=== PATIENT | female | born 1965 | race African-American/Black ===

== ENCOUNTER 2016-05-10 17:27 | Emergency (ER) | payer SELFPAY ==
[2016-05-10] MEDS ORDERED: ACETAMINOPHEN 325 MG TABLET PO ONE (17:49)
--- NOTE | 2016-05-10 17:50 | ER Document Report ---
ED Medical Screen (RME) - General Stated Complaint: DIZZY, HEADACHE,FAST HEART BEAT Mode of Arrival: Ambulatory Information source: Patient Notes: Patient complains of headache and dizziness for the past 3 days. Patient states her blood pressure has been running slightly elevated. Patient complains of generalized body aches. Patient additionally complains of blood in her stool for the past week. hx: Hypertension in the past, no on any Medications I have greeted and performed a rapid initial assessment of this patient. A comprehensive ED assessment and evaluation of the patient, analysis of test results and completion of the medical decision making process will be conducted by additional ED providers. TRAVEL OUTSIDE OF THE [place] IN LAST 30 DAYS: No - Related Data Allergies/Adverse Reactions: No Known Allergies Allergy (Verified 04/20/15 17:43) Past Medical History - Past Medical History Cardiac Medical History: Denies: Hx Atrial Fibrillation, Hx Congestive Heart Failure, Hx Coronary Artery Disease, Hx Heart Attack, Hx Hypercholesterolemia, Hx Peripheral Vascular Disease, Hx Pulmonary Embolism, Hx Heart Murmur Pulmonary Medical History: Denies: Hx Asthma, Hx Bronchitis, Hx COPD, Hx Pneumonia, Hx Respiratory Failure, Hx Sleep Apnea, Hx Tuberculosis Neurological Medical History: Denies: Hx Cerebrovascular Accident, Hx Seizures Endocrine Medical History: Denies: Hx Graves' Disease, Hx Hyperthyroidism, Hx Hypothyroidism Renal/ Medical History: Denies: Hx End Stage Renal Disease, Hx Kidney Stones, Hx Ovarian Cysts, Hx Peritoneal Dialysis, Hx Pelvic Inflammatory Disease Malignancy Medical History: Denies: Hx Breast Cancer, Hx Cervical Cancer, Hx Leukemia, Hx Lung Cancer, Hx Ovarian Cancer GI Medical History: Denies: Hx Crohn's Disease, Hx Gastroesophageal Reflux Disease, Hx Hiatal Hernia, Hx Irritable Bowel, Hx Liver Failure, Hx Ulcer Musculoskeltal Medical History: Reports Hx Arthritis, Denies Hx Fibromyalgia, Denies Hx Multiple Sclerosis, Denies Hx Muscular Dystrophy Psychiatric Medical History: Denies: Hx Bipolar Disorder, Hx Dementia, Hx Depression, Hx Post Traumatic Stress Disorder, Hx Schizophrenia Traumatic Medical History: Denies: Hx Fractures Infectious Medical History: Denies: Hx HIV Past Surgical History: Reports: Hx Hysterectomy, Hx Tonsillectomy, Hx Tubal Ligation. Denies: Hx Mastectomy, Hx Pacemaker - Immunizations Immunizations up to date: Yes Hx Diphtheria, Pertussis, Tetanus Vaccination: Yes Physical Exam - Vital signs Vitals: Temp Pulse Resp BP Pulse Ox 98.7 F 71 18 165/105 H 100 05/10/16 17:35 05/10/16 17:35 05/10/16 17:35 05/10/16 17:35 05/10/16 17:35 - Neurological Neuro grossly intact: Yes Cognition: Normal [place] Coma Scale Eye Opening: Spontaneous [place] Coma Scale Verbal: Oriented [place] Coma Scale Motor: Obeys Commands [place] Coma Scale Total: 15 Course - Vital Signs Vital signs: Temp Pulse Resp BP Pulse Ox 98.7 F 71 18 165/105 H 100 05/10/16 17:35 05/10/16 17:35 05/10/16 17:35 05/10/16 17:35 05/10/16 17:35
[2016-05-10 18:44] LABS: ABSOLUTE EOSINOPHILS # (AUTO) 0.1 10^3/uL (0.0-0.6); ABSOLUTE LYMPHOCYTES (AUTO) 2.6 10^3/uL (0.5-4.7); ABSOLUTE MONOCYTES (AUTO) 0.4 10^3/uL (0.1-1.4); ABSOLUTE NEUT (AUTO) 2.6 10^3/uL (1.7-8.2); BASOPHILS % (AUTO) 0.8 % (0-2); EOSINOPHILS % (AUTO) 1.2 % (0-6); HEMATOCRIT 41.4 % (36.0-47.0); HEMOGLOBIN 14.2 g/dL (12.0-15.5); HGB HCT DIFFERENCE 1.2; LYMPHOCYTES % (AUTO) 45.1 % (13-45); MEAN CORPUSCULAR HEMOGLOBIN 29.4 pg (27.0-33.4); MEAN CORPUSCULAR HGB CONC 34.4 g/dL (32.0-36.0); MEAN CORPUSCULAR VOLUME 86 fl (80-97); MONOCYTES % (AUTO) 6.7 % (3-13); RED BLOOD COUNT 4.84 10^6/uL (3.72-5.28); RED CELL DISTRIBUTION WIDTH 13.5 % (11.5-14.0); SEGMENTED NEUTROPHILS % (AUTO) 46.2 % (42-78); WHITE BLOOD COUNT 5.7 10^3/uL (4.0-10.5)
--- NOTE | 2016-05-10 18:56 | EKG REPORT ---
SEVERITY:- OTHERWISE NORMAL ECG - SINUS RHYTHM BORDERLINE LEFT AXIS DEVIATION : Confirmed by: Rashad Villavicencio MD 10-May-2016 18:55:24
[2016-05-10 19:07] LABS: ALANINE AMINOTRANSFERASE 26 U/L (9-52); ALBUMIN 4.4 g/dL (3.5-5.0); ALKALINE PHOSPHATASE 129 U/L (38-126); ANION GAP 12 (5-19); ASPARTATE AMINO TRANSFERASE 32 U/L (14-36); BILIRUBIN,TOTAL 0.5 mg/dL (0.2-1.3); BLOOD UREA NITROGEN 15 mg/dL (7-20); CARBON DIOXIDE 32 mmol/L (22-30); CHLORIDE 99 mmol/L (98-107); GLUCOSE 83 mg/dL (75-110); POTASSIUM 3.8 mmol/L (3.6-5.0); SODIUM 142.8 mmol/L (137-145); TOTAL PROTEIN 8.4 g/dL (6.3-8.2)
[2016-05-10 19:45] LABS: APPEARANCE,URINE CLEAR; BILIRUBIN,URINE NEGATIVE (NEGATIVE); GLUCOSE, URINE NEGATIVE (NEGATIVE); KETONES,URINE NEGATIVE (NEGATIVE); LEUKOCYTE ESTERASE,URINE NEGATIVE (NEGATIVE); NITRITE,URINE NEGATIVE (NEGATIVE); PROTEIN,URINE NEGATIVE (NEGATIVE); URINE SPECIFIC GRAVITY 1.008; UROBILINOGEN,URINE NEGATIVE mg/dL (<2.0)
[2016-05-10] MEDS ORDERED: HYDROCHLOROTHIAZIDE 12.5 MG CAPSULE PO ONE (22:57)
--- NOTE | 2016-05-10 22:58 | ER Document Report ---
ED General - General Chief Complaint: Headache Stated Complaint: DIZZY, HEADACHE,FAST HEART BEAT Mode of Arrival: Ambulatory Notes: Patient is a 50-year-old female with past medical history of hypertension who presents with concerns about her blood pressure. States that she's noted elevated blood pressure repeated at home on a home blood pressure monitor and became concerned about this and wanted to be evaluated tonight. In triage she did complain of some associated "dizziness" but denies this complaint to me and states her only real concern is regarding her blood pressure. She has not had any nausea, vomiting, chest pain, shortness of breath or syncope. She has not seen a primary care physician regarding today's concerns. States she used to be on antihypertensive medications but is not taking these any longer. Nothing improves or worsens her symptoms. TRAVEL OUTSIDE OF THE [place] IN LAST 30 DAYS: No - Related Data Allergies/Adverse Reactions: No Known Allergies Allergy (Verified 04/20/15 17:43) Past Medical History - General Information source: Patient - Social History Smoking Status: Never Smoker Frequency of alcohol use: None Drug Abuse: None Lives with: Spouse/Significant other Family History: Reviewed & Not Pertinent Patient has suicidal ideation: No Patient has homicidal ideation: No - Past Medical History Cardiac Medical History: Denies: Hx Atrial Fibrillation, Hx Congestive Heart Failure, Hx Coronary Artery Disease, Hx Heart Attack, Hx Hypercholesterolemia, Hx Peripheral Vascular Disease, Hx Pulmonary Embolism, Hx Heart Murmur Pulmonary Medical History: Denies: Hx Asthma, Hx Bronchitis, Hx COPD, Hx Pneumonia, Hx Respiratory Failure, Hx Sleep Apnea, Hx Tuberculosis Neurological Medical History: Denies: Hx Cerebrovascular Accident, Hx Seizures Endocrine Medical History: Denies: Hx Graves' Disease, Hx Hyperthyroidism, Hx Hypothyroidism Renal/ Medical History: Denies: Hx End Stage Renal Disease, Hx Kidney Stones, Hx Ovarian Cysts, Hx Peritoneal Dialysis, Hx Pelvic Inflammatory Disease Malignancy Medical History: Denies: Hx Breast Cancer, Hx Cervical Cancer, Hx Leukemia, Hx Lung Cancer, Hx Ovarian Cancer GI Medical History: Denies: Hx Crohn's Disease, Hx Gastroesophageal Reflux Disease, Hx Hiatal Hernia, Hx Irritable Bowel, Hx Liver Failure, Hx Ulcer Musculoskeltal Medical History: Reports Hx Arthritis, Denies Hx Fibromyalgia, Denies Hx Multiple Sclerosis, Denies Hx Muscular Dystrophy Psychiatric Medical History: Denies: Hx Bipolar Disorder, Hx Dementia, Hx Depression, Hx Post Traumatic Stress Disorder, Hx Schizophrenia Traumatic Medical History: Denies: Hx Fractures Infectious Medical History: Denies: Hx HIV Past Surgical History: Reports: Hx Hysterectomy, Hx Tonsillectomy, Hx Tubal Ligation. Denies: Hx Mastectomy, Hx Pacemaker - Immunizations Immunizations up to date: Yes Hx Diphtheria, Pertussis, Tetanus Vaccination: Yes Review of Systems - Review of Systems Notes: Constitutional: Negative for fever. HENT: Negative for sore throat. Eyes: Negative for visual changes. Cardiovascular: Negative for chest pain. Respiratory: Negative for shortness of breath. Gastrointestinal: Negative for abdominal pain, vomiting or diarrhea. Genitourinary: Negative for dysuria. Musculoskeletal: Negative for back pain. Skin: Negative for rash. Neurological: Negative for headaches, weakness or numbness. 10 point ROS negative except as marked above and in HPI. Physical Exam - Vital signs Vitals: Temp Pulse Resp BP Pulse Ox 98.7 F 71 18 165/105 H 100 05/10/16 17:35 05/10/16 17:35 05/10/16 17:35 05/10/16 17:35 05/10/16 17:35 Interpretation: Hypertensive Notes: PHYSICAL EXAMINATION: GENERAL: Well-appearing, well-nourished and in no acute distress. HEAD: Atraumatic, normocephalic. EYES: Pupils equal round and reactive to light, extraocular movements intact, sclera anicteric, conjunctiva are normal. ENT: nares patent, oropharynx clear without exudates. Moist mucous membranes. NECK: Normal range of motion, supple without lymphadenopathy LUNGS: Breath sounds clear to auscultation bilaterally and equal. No wheezes rales or rhonchi. HEART: Regular rate and rhythm without murmurs ABDOMEN: Soft, nontender, normoactive bowel sounds. No guarding, no rebound. No masses appreciated. EXTREMITIES: Normal range of motion, no pitting or edema. No cyanosis. NEUROLOGICAL: No focal neurological deficits. Moves all extremities spontaneously and on command. PSYCH: Normal mood, normal affect. SKIN: Warm, Dry, normal turgor, no rashes or lesions noted. Course - Re-evaluation Re-evalutation: 05/10/16 22:55 Presentation of asymptomatic hypertension. Patient denies any symptoms concerning for SAH, dissection, PR, or encephalopaty. Alert, oriented, and denies any symptoms at time of assessment. Patient states her main concern was her blood pressure. Contrary to triage note, patient denies any rectal bleeding or headache to me. States that she has had blood pressure that has been uncontrolled for years and is not currently on any medications Normal neuro exam. I have discussed critical importance of follow up with PCP within 1 week and increased risk of devastating stroke, heart attack, respiratory distress, and other life threatening complications if blood pressure is not reduced appropriately. Diet and exercise habits also discussed.a broad range of laboratory was ordered in triage as well as an EKG likewise are unremarkable. At this time will discharge with return precautions and follow-up recommendations. Verbal discharge instructions given a the bedside and opportunity for questions given. Medication warnings reviewed. Patient is in agreement with this plan and has verbalized understanding of return precautions and the need for primary care follow-up in the next 24-72 hours. - Vital Signs Vital signs: Temp Pulse Resp BP Pulse Ox 97.9 F 66 16 146/99 H 99 05/10/16 23:42 05/10/16 23:42 05/10/16 23:42 05/10/16 23:42 05/10/16 23:42 - Laboratory Result Diagrams: 05/10/16 18:25 05/10/16 18:25 Laboratory results interpreted by me: 05/10/16 05/10/16 18:25 18:25 Lymphocytes % 45.1 H Carbon Dioxide 32 H Alkaline Phosphatase 129 H Total Protein 8.4 H - EKG Interpretation by Me Additional EKG results interpreted by me: 05/10/16 22:56 Normal sinus rhythm. Rate 67. No ST elevations or depressions. QTC is 444. Discharge - Discharge Clinical Impression: Essential hypertension Condition: Good Disposition: HOME, SELF-CARE Additional Instructions: You were seen today for blood pressure that was high. This is a long-term risk factor for multiple medical problems including heart attack and stroke. However, the blood pressure in of itself will not cause you to have an acute stroke or heart attack over the course of just several days or weeks. You need to have a gradual reduction of your blood pressure back to normal levels over the next several months in conjunction with your primary care physician. Return if you develop headache, weakness, numbness, chest pain, pass out, or have any other symptoms that are concerning to you. Prescriptions: Hydrochlorothiazide 12.5 mg PO DAILY #30 tablet
[2016-05-10 23:50] VITALS: BP 146/99
== END 2016-05-10 23:45 | disposition home or self-care (01) ==
LOC: ER 17:27
DX: I10 Essential (primary) hypertension (principal); R51 Headache; R42 Dizziness and giddiness; Z90.710 Acquired absence of both cervix and uterus
CPT/HCPCS: 36415; 80053; 81001; 85025; 93005; 93010; 99284

== ENCOUNTER 2017-11-06 23:05 | Emergency (ER) | payer OTHER ==
[2017-11-07] MEDS ORDERED: KETOROLAC TROMETHAMINE 60 MG/2 ML SDV IM ONE (02:49)
[2017-11-07] MEDS ORDERED: METHOCARBAMOL 750 MG TABLET PO ONE (02:49)
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
[2017-11-07 04:45] VITALS: BP 152/94
== END 2017-11-07 04:46 | disposition home or self-care (01) ==
LOC: ER 23:05
DX: S16.1XXA Strain of muscle, fascia and tendon at neck level, initial encounter (principal); M54.6 Pain in thoracic spine; V89.2XXA Person injured in unspecified motor-vehicle accident, traffic, initial encounter; Z90.710 Acquired absence of both cervix and uterus; Z98.51 Tubal ligation status
CPT/HCPCS: 99284; 96372; 72040; 72070; J1885; J3490

== ENCOUNTER 2018-02-10 08:33 | Emergency (ER) | payer OTHER ==
[2018-02-10] MEDS ORDERED: KETOROLAC TROMETHAMINE INJ/PF 30 MG/1 ML SDV IV ONE (09:09)
[2018-02-10 09:43] LABS: ABSOLUTE LYMPHOCYTES (AUTO) 1.2 10^3/uL (0.5-4.7); ABSOLUTE MONOCYTES (AUTO) 0.2 10^3/uL (0.1-1.4); ABSOLUTE NEUT (AUTO) 2.4 10^3/uL (1.7-8.2); EOSINOPHILS % (AUTO) 0.6 % (0-6); HEMATOCRIT 40.4 % (36.0-47.0); HEMOGLOBIN 13.8 g/dL (12.0-15.5); LYMPHOCYTES % (AUTO) 31.7 % (13-45); MEAN CORPUSCULAR HEMOGLOBIN 29.2 pg (27.0-33.4); MEAN CORPUSCULAR HGB CONC 34.2 g/dL (32.0-36.0); MEAN CORPUSCULAR VOLUME 85 fl (80-97); MONOCYTES % (AUTO) 4.7 % (3-13); PLATELET COUNT 270 10^3/uL (150-450); RED BLOOD COUNT 4.74 10^6/uL (3.72-5.28); RED CELL DISTRIBUTION WIDTH 13.3 % (11.5-14.0); TOTAL CELLS COUNTED % (AUTO) 100 %; WHITE BLOOD COUNT 3.9 10^3/uL (4.0-10.5)
[2018-02-10 10:05] LABS: ALANINE AMINOTRANSFERASE 17 U/L (9-52); ALBUMIN 4.5 g/dL (3.5-5.0); ALKALINE PHOSPHATASE 95 U/L (38-126); ANION GAP 8 (5-19); ASPARTATE AMINO TRANSFERASE 25 U/L (14-36); BILIRUBIN,DIRECT 0.3 mg/dL (0.0-0.4); BILIRUBIN,TOTAL 0.6 mg/dL (0.2-1.3); BLOOD UREA NITROGEN 16 mg/dL (7-20); CALCIUM 9.9 mg/dL (8.4-10.2); CARBON DIOXIDE 32 mmol/L (22-30); CHLORIDE 102 mmol/L (98-107); GLUCOSE 93 mg/dL (75-110); POTASSIUM 4.5 mmol/L (3.6-5.0); SODIUM 142.2 mmol/L (137-145); TOTAL PROTEIN 7.7 g/dL (6.3-8.2)
[2018-02-10 10:19] LABS: APPEARANCE,URINE CLEAR; BILIRUBIN,URINE NEGATIVE (NEGATIVE); COLOR,URINE STRAW; GLUCOSE, URINE NEGATIVE (NEGATIVE); KETONES,URINE NEGATIVE (NEGATIVE); LEUKOCYTE ESTERASE,URINE NEGATIVE (NEGATIVE); NITRITE,URINE NEGATIVE (NEGATIVE); PROTEIN,URINE NEGATIVE (NEGATIVE); URINE SPECIFIC GRAVITY 1.009; UROBILINOGEN,URINE NEGATIVE mg/dL (<2.0)
[2018-02-10 10:42] LABS: URINE AMPHETAMINES SCREEN NEGATIVE; URINE BENZODIAZEPINES SCREEN NEGATIVE; URINE COCAINE SCREEN NEGATIVE; URINE MARIJUANA (THC) SCREEN UNCONFIRMED POSITIVE; URINE PHENCYCLIDINE SCREEN NEGATIVE
[2018-02-10 10:43] LABS: URINE BARBITURATES SCREEN NEGATIVE; URINE METHADONE SCREEN NEGATIVE
--- NOTE | 2018-02-10 12:17 | RADIOLOGY REPORT (SQ) ---
EXAM DESCRIPTION: U/S NON OB PEL TV W/DOPPLER COMPLETED DATE/TIME: 02/10/2018 12:03 pm REASON FOR STUDY: rught adenexal pain COMPARISON: None. TECHNIQUE: Dynamic and static grayscale images acquired of the pelvis via transvaginal approach and recorded on PACS. Additional selected color Doppler and spectral images recorded. LIMITATIONS: None. FINDINGS: There is scratch the limiting overlying bowel gas. Patient reportedly status post partial hysterectomy. No mass identified. Ovaries not seen. IMPRESSION: No gross mass. Ovaries and uterus not seen. TECHNICAL DOCUMENTATION: JOB ID: [id number] [employer]- All Rights Reserved Rev-08/18 Reading location - IP/workstation name: [email or web address]
[2018-02-10 12:58] VITALS: BP 163/95
--- NOTE | 2018-02-10 14:46 | ER Document Report ---
ED General - General Chief Complaint: Flank Pain Stated Complaint: BACK AND SIDE PAIN Time Seen by Provider: 02/10/18 08:54 Mode of Arrival: Ambulatory Notes: Patient is a 52-year-old female comes emergency room complaining of right-sided back pain that comes around to the side and into the right lower quadrant area. Patient calls it a sharp pain a constant pain there is been getting worse over the past 3 days. Patient denies any discharge vaginally she denies any urinary symptoms. She has a history of a partial hysterectomy in 2011. No fever she does have some increased pain with any type of movement to the right leg and groin area. She does not smoke and she works in a [employer] center. TRAVEL OUTSIDE OF THE [place] IN LAST 30 DAYS: No - HPI Onset: Other - 2 weeks but worse in the past 3 days and has become constant. Onset/Duration: Constant, Persistent, Worse Quality of pain: Achy, Cramping, Sharp Severity: Moderate Pain Level: 3 Associated symptoms: denies: Diarrhea, Leg swelling, Nausea, Vomiting Exacerbated by: Movement, Walking Relieved by: Remaining still Similar symptoms previously: Yes Recently seen / treated by doctor: No - Related Data Allergies/Adverse Reactions: No Known Allergies Allergy (Verified 02/10/18 08:34) Past Medical History - General Information source: Patient - Social History Smoking Status: Never Smoker Cigarette use (# per day): No Chew tobacco use (# tins/day): No Smoking Education Provided: No Frequency of alcohol use: Occasional Drug Abuse: None Family History: Reviewed & Not Pertinent Patient has suicidal ideation: No Patient has homicidal ideation: No - Past Medical History Cardiac Medical History: Reports: Hx Hypertension - no meds Denies: Hx Atrial Fibrillation, Hx Congestive Heart Failure, Hx Coronary Artery Disease, Hx Heart Attack, Hx Hypercholesterolemia, Hx Peripheral Vascular Disease, Hx Pulmonary Embolism, Hx Heart Murmur Pulmonary Medical History: Denies: Hx Asthma, Hx Bronchitis, Hx COPD, Hx Pneumonia, Hx Respiratory Failure, Hx Sleep Apnea, Hx Tuberculosis Neurological Medical History: Denies: Hx Cerebrovascular Accident, Hx Seizures Endocrine Medical History: Denies: Hx Graves' Disease, Hx Hyperthyroidism, Hx Hypothyroidism Renal/ Medical History: Denies: Hx End Stage Renal Disease, Hx Kidney Stones, Hx Ovarian Cysts, Hx Peritoneal Dialysis, Hx Pelvic Inflammatory Disease Malignancy Medical History: Denies: Hx Breast Cancer, Hx Cervical Cancer, Hx Leukemia, Hx Lung Cancer, Hx Ovarian Cancer GI Medical History: Denies: Hx Crohn's Disease, Hx Gastroesophageal Reflux Disease, Hx Hiatal Hernia, Hx Irritable Bowel, Hx Liver Failure, Hx Pancreatitis , Hx Ulcer Musculoskeletal Medical History: Reports Hx Arthritis, Denies Hx Fibromyalgia, Denies Hx Multiple Sclerosis, Denies Hx Muscular Dystrophy Psychiatric Medical History: Denies: Hx Bipolar Disorder, Hx Dementia, Hx Depression, Hx Post Traumatic Stress Disorder, Hx Schizophrenia Traumatic Medical History: Denies: Hx Fractures Infectious Medical History: Denies: Hx HIV Past Surgical History: Reports: Hx Hysterectomy, Hx Tonsillectomy, Hx Tubal Ligation. Denies: Hx Mastectomy, Hx Pacemaker - Immunizations Immunizations up to date: Yes Hx Diphtheria, Pertussis, Tetanus Vaccination: Yes Review of Systems - Review of Systems Constitutional: No symptoms reported EENT: No symptoms reported Cardiovascular: No symptoms reported Respiratory: No symptoms reported Gastrointestinal: No symptoms reported Genitourinary: No symptoms reported Female Genitourinary: No symptoms reported Musculoskeletal: No symptoms reported, Joint pain, Muscle pain. denies: Leg swelling, Ankle swelling Skin: No symptoms reported Hematologic/Lymphatic: No symptoms reported Neurological/Psychological: No symptoms reported -: Yes All other systems reviewed and negative Physical Exam - Vital signs Vitals: Temp Pulse Resp BP Pulse Ox 98.3 F 65 14 150/109 H 96 02/10/18 08:37 02/10/18 08:37 02/10/18 08:37 02/10/18 08:37 02/10/18 08:37 Interpretation: Hypertensive - Notes Notes: PHYSICAL EXAMINATION: GENERAL: Well-appearing, well-nourished and in no acute distress. Does appear uncomfortable HEAD: Atraumatic, normocephalic. EYES: Pupils equal round and reactive to light, extraocular movements intact, conjunctiva are normal. ENT: Nares patent, oropharynx clear without exudates. Moist mucous membranes. NECK: Normal range of motion, supple without lymphadenopathy LUNGS: Breath sounds clear to auscultation bilaterally and equal. No wheezes rales or rhonchi. HEART: Regular rate and rhythm without murmurs ABDOMEN: Examination patient's abdomen shows that she has bowel sounds in all 4 quads. Patient has no tenderness in any of the 4 quads. This is to percussion or palpation. However patient does show some right lateral abdominal pain more towards the adnexal area then to the periumbilical area. This is less concerning for a appendicitis but more concerning for some pathology for an ovary. Given the location also that is quite concerning for a hip problem. Female : deferred Musculoskeletal: Examination of patient's right groin area and pelvic area shows that she has increased discomfort and pain against resistance in all planes. She has a positive straight leg raise to 22 degrees of thereabout with right straight leg raise. This is where it starts to really hurt her with active range of motion. Passive range of motion patient has little to no pain.. Through passive range of motion there is no crepitus felt in the groin or girdle area. NEUROLOGICAL: Normal speech, normal gait. Normal sensory, motor exams PSYCH: Normal mood, normal affect. SKIN: Warm, Dry, normal turgor, no rashes or lesions noted. Course - Re-evaluation Re-evalutation: 02/10/18 14:44 Reevaluation of patient after testing was completed that shows that her labs are all normal. Her ultrasound of the transvaginal did not show the ovaries therefore that either there were removed with her hysterectomy or of a just not visible. At any point she will need further workup however we will treat her for some bursitis tendinitis of the right hip area. Vascular exam was totally normal. She has good pulses in the right inguinal area and left inguinal areas. She has great distal pulses and dorsalis pedis bilaterally. Cap refill in the nailbeds of the toes. Her neuro check was also totally normal. At this point I believe this is a localized area does not relate to a paralysis of any type. Patient has good sensation in her distal extremities as well. - Vital Signs Vital signs: Temp Pulse Resp BP Pulse Ox 99.5 F 61 20 163/95 H 99 02/10/18 12:32 02/10/18 12:32 02/10/18 12:32 02/10/18 12:32 02/10/18 12:32 - Laboratory Result Diagrams: 02/10/18 09:30 02/10/18 09:30 Laboratory results interpreted by me: 02/10/18 02/10/18 09:30 09:30 WBC 3.9 L Carbon Dioxide 32 H Discharge - Discharge Clinical Impression: Strain of right hip Qualifiers: Encounter type: initial encounter Qualified Code(s): S76.011A - Strain of muscle, fascia and tendon of right hip, initial encounter Hip flexor tendonitis Qualifiers: Laterality: right Qualified Code(s): M76.891 - Other specified enthesopathies of right lower limb, excluding foot Bursitis of hip, right Qualifiers: Hip bursitis location: trochanteric bursitis Qualified Code(s): M70.61 - Trochanteric bursitis, right hip Condition: Stable Disposition: HOME, SELF-CARE Instructions: Bursitis ([facility]) Additional Instructions: As we discussed I believe this is either a tendinitis/bursitis or hip strain. We will attempt to treat with anti-inflammatory and muscle relaxer. When she do use moist heat or ice 2 times a day. Light stretching starting tomorrow. Contact your primary care physician for further intervention. If the pain continues you probably need to get a MRI of the area. Should you have concerns or problems if the pain gets worse return to ER for a recheck. Prescriptions: Methocarbamol [Robaxin 500 mg Tablet] 500 mg PO BID PRN #20 tablet PRN Reason: Prednisone 10 mg PO ASDIR PRN 6 Days #1 tab.ds.pk PRN Reason: Tramadol HCl [Ultram 50 mg Tablet] 50 mg PO Q6 PRN #20 tab PRN Reason:
== END 2018-02-10 15:17 | disposition home or self-care (01) ==
LOC: ER 08:33
DX: S76.011A Strain of muscle, fascia and tendon of right hip, initial encounter (principal); M76.891 Other specified enthesopathies of right lower limb, excluding foot; M54.5 Low back pain; X58.XXXA Exposure to other specified factors, initial encounter; Z90.710 Acquired absence of both cervix and uterus; I10 Essential (primary) hypertension
CPT/HCPCS: 99284; 96374; 36415; 85025; 80053; 81001; 80307; 76830; 93976; J1885

== ENCOUNTER 2019-04-09 15:27 | Emergency (ER) | payer SELFPAY ==
--- NOTE | 2019-04-09 15:58 | ER Document Report ---
ED Medical Screen (RME) - General Chief Complaint: Congestion Stated Complaint: COUGH,CONGESTION,BODY ACHES Time Seen by Provider: 04/09/19 15:54 Mode of Arrival: Ambulatory Information source: Patient Notes: 53-year-old female presents to ED for cough cold congestion intermittent fever. She states she had a temperature last night of 101.6. She states she has had a horrible cough since before . Today she came in with elevated blood pressure and a headache. She is alert oriented respirations regular nonlabored speaking in full sentences. She states she does have high blood pressure intermittently but is never been put on any blood pressure medicine but she has been taking cold medicine [id number] for the last couple weeks. She states she has been coughing until she swells up at times. I have greeted and performed a rapid initial assessment of this patient. A comprehensive ED assessment and evaluation of the patient, analysis of test results and completion of medical decision making process will be conducted by an additional ED providers. TRAVEL OUTSIDE OF THE [place] IN LAST 30 DAYS: No - Related Data Smoking: Other - Less than 1 cigarette a day Frequency of alcohol use: Occasional Drug Abuse: Marijuana - Be once a month Allergies/Adverse Reactions: No Known Allergies Allergy (Verified 04/09/19 15:53) Past Medical History - Past Medical History Cardiac Medical History: Reports: Hx Hypertension - no meds Pulmonary Medical History: Reports: None EENT Medical History: Reports: None Neurological Medical History: Reports: None Endocrine Medical History: Reports: None Renal/ Medical History: Reports: None Malignancy Medical History: Reports: None GI Medical History: Reports: None Musculoskeltal Medical History: Reports Hx Arthritis Skin Medical History: Reports None Psychiatric Medical History: Reports: None Denies: Hx Bipolar Disorder, Hx Dementia, Hx Depression, Hx Post Traumatic Stress Disorder, Hx Schizophrenia Traumatic Medical History: Reports: None Infectious Medical History: Reports: None Past Surgical History: Reports: Hx Hysterectomy, Hx Tonsillectomy, Hx Tubal Ligation - Immunizations Immunizations up to date: Yes Hx Diphtheria, Pertussis, Tetanus Vaccination: Yes Physical Exam - Vital signs Vitals: Temp Pulse Resp BP Pulse Ox 99.1 F 82 20 167/106 H 98 04/09/19 15:36 04/09/19 15:36 04/09/19 15:36 04/09/19 15:36 04/09/19 15:36 Course - Vital Signs Vital signs: Temp Pulse Resp BP Pulse Ox 99.1 F 82 20 164/94 H 98 04/09/19 15:36 04/09/19 15:36 04/09/19 15:36 04/09/19 15:54 04/09/19 15:36
[2019-04-09 16:21] LABS: APPEARANCE,URINE CLEAR; BILIRUBIN,URINE NEGATIVE (NEGATIVE); COLOR,URINE STRAW; GLUCOSE, URINE NEGATIVE (NEGATIVE); KETONES,URINE NEGATIVE (NEGATIVE); PROTEIN,URINE NEGATIVE (NEGATIVE); URINE SPECIFIC GRAVITY 1.006
[2019-04-09 16:22] LABS: ABSOLUTE BASOPHILS # (AUTO) 0.1 10^3/uL (0.0-0.2); ABSOLUTE LYMPHOCYTES (AUTO) 2.2 10^3/uL (0.5-4.7); ABSOLUTE MONOCYTES (AUTO) 0.7 10^3/uL (0.1-1.4); ABSOLUTE NEUT (AUTO) 4.5 10^3/uL (1.7-8.2); EOSINOPHILS % (AUTO) 0.6 % (0-6); HEMOGLOBIN 13.9 g/dL (12.0-15.5); LYMPHOCYTES % (AUTO) 29.1 % (13-45); MEAN CORPUSCULAR HEMOGLOBIN 29.8 pg (27.0-33.4); MEAN CORPUSCULAR HGB CONC 34.7 g/dL (32.0-36.0); MEAN CORPUSCULAR VOLUME 86 fl (80-97); MONOCYTES % (AUTO) 8.9 % (3-13); PLATELET COUNT 357 10^3/uL (150-450); RED BLOOD COUNT 4.65 10^6/uL (3.72-5.28); RED CELL DISTRIBUTION WIDTH 13.4 % (11.5-14.0); SEGMENTED NEUTROPHILS % (AUTO) 59.4 % (42-78); TOTAL CELLS COUNTED % (AUTO) 100 %; WHITE BLOOD COUNT 7.5 10^3/uL (4.0-10.5)
[2019-04-09 16:35] LABS: ALBUMIN 4.4 g/dL (3.5-5.0); ALKALINE PHOSPHATASE 141 U/L (38-126); ANION GAP 8 (5-19); ASPARTATE AMINO TRANSFERASE 53 U/L (14-36); BILIRUBIN,DIRECT 0.3 mg/dL (0.0-0.4); BILIRUBIN,TOTAL 0.4 mg/dL (0.2-1.3); BLOOD UREA NITROGEN 13 mg/dL (7-20); CARBON DIOXIDE 34 mmol/L (22-30); CHLORIDE 97 mmol/L (98-107); GLUCOSE 97 mg/dL (75-110); POTASSIUM 4.9 mmol/L (3.6-5.0)
--- NOTE | 2019-04-09 16:52 | RADIOLOGY REPORT (SQ) ---
EXAM DESCRIPTION: CHEST 2 VIEWS COMPLETED DATE/TIME: 04/09/2019 4:39 pm REASON FOR STUDY: cough until vomit, fever COMPARISON: 04/20/2015. EXAM PARAMETERS: NUMBER OF VIEWS: two views TECHNIQUE: Digital Frontal and Lateral radiographic views of the chest acquired. RADIATION DOSE: NA LIMITATIONS: none FINDINGS: LUNGS AND PLEURA: No opacities, masses or pneumothorax. No pleural effusion. MEDIASTINUM AND HILAR STRUCTURES: No masses or contour abnormalities. HEART AND VASCULAR STRUCTURES: Heart normal size. No evidence for failure. BONES: No acute findings. HARDWARE: None in the chest. OTHER: No other significant finding. IMPRESSION: NO ACUTE RADIOGRAPHIC FINDING IN THE CHEST. TECHNICAL DOCUMENTATION: JOB ID: [id number] [employer]- All Rights Reserved Reading location - IP/workstation name: [email or web address]
[2019-04-09] MEDS ORDERED: METHYLPREDNISOLONE INJ 125 MG/2 ML SDV IV ONE (19:09)
[2019-04-09] MEDS ORDERED: IPRATROPIUM/ALBUTEROL 0.5-2.5 MG/3 ML AMPUL NEB ONE (19:09)
[2019-04-09] MEDS ORDERED: CEFTRIAXONE 1 GM/D5W RTU 1 GM/50 ML RTUPB IV ONE (19:09)
--- NOTE | 2019-04-09 20:17 | ER Document Report ---
ED Respiratory Problem - General Chief Complaint: Nonproductive Cough Stated Complaint: COUGH,CONGESTION,BODY ACHES Time Seen by Provider: 04/09/19 15:54 Mode of Arrival: Ambulatory Notes: 53-year-old woman presents to the emergency department with a two-week history of cough and congestion. Associated she complains of associated chest burning and cough which is productive of a yellowish sputum. She denies a history of lung problems, she is a smoker and she has no associated comorbidities. She has been using [id number] Delsym for cough states that it has not helped she has been unable to rest at night. She has had to miss work over the past few days due to symptoms. TRAVEL OUTSIDE OF THE [place] IN LAST 30 DAYS: No - Related Data Allergies/Adverse Reactions: No Known Allergies Allergy (Verified 04/09/19 15:53) Past Medical History - General Information source: Patient - Social History Smoking Status: Current Every Day Smoker Frequency of alcohol use: Occasional Drug Abuse: Marijuana - Be once a month Family History: Reviewed & Not Pertinent Patient has suicidal ideation: No Patient has homicidal ideation: No - Past Medical History Cardiac Medical History: Reports: Hx Hypertension - no meds Pulmonary Medical History: Reports: None EENT Medical History: Reports: None Neurological Medical History: Reports: None Endocrine Medical History: Reports: None Renal/ Medical History: Reports: None Malignancy Medical History: Reports: None GI Medical History: Reports: None Musculoskeletal Medical History: Reports Hx Arthritis Skin Medical History: Reports None Psychiatric Medical History: Reports: None Denies: Hx Bipolar Disorder, Hx Dementia, Hx Depression, Hx Post Traumatic Stress Disorder, Hx Schizophrenia Traumatic Medical History: Reports: None Infectious Medical History: Reports: None Past Surgical History: Reports: Hx Hysterectomy, Hx Tonsillectomy, Hx Tubal Ligation - Immunizations Immunizations up to date: Yes Hx Diphtheria, Pertussis, Tetanus Vaccination: Yes Review of Systems - Review of Systems Notes: Constitutional: Negative for fever. HENT: Negative for sore throat. Eyes: Negative for visual changes. Cardiovascular: Negative for chest pain. Respiratory: + Cough, + shortness of breath Gastrointestinal: Negative for abdominal pain, vomiting or diarrhea. Genitourinary: Negative for dysuria. Musculoskeletal: Negative for back pain. Skin: Negative for rash. Neurological: Negative for headaches, weakness or numbness. 10 point ROS negative except as marked above and in HPI. Physical Exam - Vital signs Vitals: Temp Pulse Resp BP Pulse Ox 99.1 F 82 20 167/106 H 98 04/09/19 15:36 04/09/19 15:36 04/09/19 15:36 04/09/19 15:36 04/09/19 15:36 - Notes Notes: PHYSICAL EXAMINATION: Physical Exam: General: Well-nourished well-developed female, with coughing spells. In no acute distress HEENT: NC/AT, pupils equal round and reactive to light, MM moist,nares clear, Neck: supple, no adenopathy, no masses. Lungs: clear, no wheezing, no rales no rhonchi CVS: Regular rate and rhythm no murmur gallop or rub Abdomen: Soft active nontender, no masses, no hepatosplenomegaly Ext: No edema clubbing or cyanosis. Neuro: Alert and responsive, moving all 4 extremities on command, cranial nerves intact. Skin: Intact no open lesions, no rash PSYCH: Normal mood, normal affect. Course - Re-evaluation Re-evalutation: 04/09/19 20:17 Differential diagnosis Acute bronchitis, pneumonia, URI/viral illness. Patient is given nebulizer treatment, IV ceftriaxone and Solu-Medrol. Her symptoms have improved slightly, she is being discharged home with cefdinir, prednisone, Promethazine DM for cough and instructed to follow-up with her primary care doctor as needed. Also giving her a note for work to excuse her for the next 72 hours. I have explained this plan to the patient as she acknowledges an understanding of the plan and is in agreement. - Vital Signs Vital signs: Temp Pulse Resp BP Pulse Ox 99.1 F 82 20 164/94 H 98 04/09/19 15:36 04/09/19 15:36 04/09/19 15:36 04/09/19 15:54 04/09/19 15:36 - Laboratory Result Diagrams: 04/09/19 16:05 04/09/19 16:05 Laboratory results interpreted by me: 04/09/19 04/09/19 16:05 16:05 Chloride 97 L Carbon Dioxide 34 H AST 53 H Alkaline Phosphatase 141 H Urine Urobilinogen 2.0 H Urine Ascorbic Acid 40 H - Diagnostic Test Radiology reviewed: Image reviewed, Reports reviewed - Chest x-ray: No acute findings. Discharge - Discharge Clinical Impression: Cough Acute bronchitis Qualifiers: Bronchitis organism: unspecified organism Qualified Code(s): J20.9 - Acute bronchitis, unspecified Disposition: HOME, SELF-CARE Instructions: Bronchitis ([facility]) Additional Instructions: You were seen for symptoms most consistent with bronchitis. Please take the medications as prescribed cefdinir, prednisone, promethazine DM. Please follow- up with primary care doctor or clinic. [facility] may have availability for follow-up. Forms: Smoking Cessation Education, Return to Work
[2019-04-09 20:55] VITALS: BP 159/95
== END 2019-04-09 20:55 | disposition home or self-care (01) ==
LOC: ER 15:27
DX: J20.9 Acute bronchitis, unspecified (principal); R05 Cough; R09.89 Other specified symptoms and signs involving the circulatory and respiratory systems; F17.200 Nicotine dependence, unspecified, uncomplicated; F12.10 Cannabis abuse, uncomplicated; I10 Essential (primary) hypertension
CPT/HCPCS: 94640; 99283; 96375; 96365; 36415; 85025; 80053; 81001; 71046; J2930; J0696; J7620